=== PATIENT | male | born 1955 | race Caucasian/White ===

== ENCOUNTER 2025-03-21 12:25 | Outpatient (CLI) | payer MEDICARE, SELFPAY ==
--- OUTSIDE RECORDS SUMMARY | 2025-03-21 12:28 | XMS_ITS | Encounter Summary ---
Author Organization [facility] Address [address] [place] [address] Care Team Providers Care Senior Sales Executive Name Role Phone Unavailable Primary Care Provider Unavailabl e Encounter Details Date Type Department Care Team (Late st Contact Info) Description 10/09/2021 Lab Requisition [facility] [address] [facility], [place] [phone] Hilaria Lua MD [address] [facility] [address] [place] [address] Social History Tobacco Use Types Packs/Day Years Used Date Smoking Tobacco: Every Day Cigarettes Smokeless Tobacco: Former Alcohol Use Standard Drinks/Week Comments Never 0 (1 standard drink = 0.6 oz pur e alcohol) AUDIT-C Answer Date Recorded Q1: How often do you have a drink containing alc ohol? Never 10/09/2021 Average Number of Drinks Not on file 022 Frequency of Binge Drinking Not on file 08/2021 Hunger Vital Sign Answer Date Recorded Within the past 12 months, y ou worried that your food would run out before you got the money to buy more. Never true 10/12/19 22 Within the past 12 months, t he food you bought just didn't last and you didn't have money to get more. Never true 10/11/2021 Sex and Gender Information Value Date Recorded Sex Assigned at Not on file Legal Sex Male 5:48 AM CREDIT RISK OFFICER Gender Identity Not on file Sexual Orientation Not on file documented as of this encounter Functional Status documented as of this encounter Plan of Treatment Not on file documented as of this encounter Procedures Procedure Name Priority Date/Time Associated Diagnosis Comments IMMUNOFLUORESCENT STUDY DERM Routine 10/09/2021 12:00 AM CREDIT RISK OFFICER documented in this encounter Results * IMMUNOFLUORESCENT STUDY DERM (10/09/2021 12:00 AM CREDIT RISK OFFICER) Case Report Dermatopathol ogy Report Case: [id number] Authorizing Provider: Hilaria Lua MD Collected: 10/09/2021 12:00 AM Ordering Location: [facility] DermPath Lab Received: 10/09/2021 04:27 PM Pathologist: Selene Vitale MD Specimen: Skin, back 2 10:45 AM [facility] DERMATOPATHOLOGY LABORATORY Final Diagnosis Specimen A. SKIN, back: NO IMMUNOPATHOLO GICAL ABNORMALITY (L98.9) (see fixed tissue results [id number]) 2 10:45 AM [facility] DERMATOPATHOLOGY LABORATORY at 1045 CREDIT RISK OFFICER Direct Immunofluorescence Report - Specimen A Specimen A IgA IgM IgG C3 CollV Fibrinogen Epidermis Negative Negative Negative Negative Negative Negative Basement Membrane Negative Negative Negative Negative 2+ Negative Vessels Negative Negative Negative Negative 2+ Negative Interstitium Negative Negative Negative Negative Negative Non specific 2 10:45 AM [facility] DERMATOPATHOLOGY LABORATORY Clinical History VZV/HSV VS 10/12/19 2 2 10:45 AM [facility] DERMATOPATHOLOGY LABORATORY Gross Description Specimen A: Received is one Aldair's media filled container labeled with the patient's name and designated back. The specimen consists of a punch biopsy measuring 4x4x6 mm. The specimen is submitted in whole for direct immunofluores cence testing. 2 10:45 AM [facility] DERMATOPATHOLOGY LABORATORY Microscopic Description Specimen A. SKIN, back: Controls were run in parallel. Staining is negative with IgA, IgM, IgG, and C3. Collagen IV stains the basement membrane zone and vessels. Fibrinogen shows non-specific staining. A hematoxylin and eosin stained frozen section shows no significant inflammation. See fixed tissue results. 2 10:45 AM [facility] DERMATOPATHOLOGY LABORATORY Disclaimer An external and internal positive and negative controls are appropriate for the histochemical , immunohistoch emical and immunofluores cence stain(s) in this case (if any), except where stated explicitly. The performance characteristi cs of the stain(s) cited in this report were developed and its performance characteristi c determined by the Dermatopathol ogy Laboratory at [facility], directed by Dr. Isai Harris. These tests need not be, and therefore are not, approved by the [place] Food and Drug Administratio n. The tests are used for clinical purposes. Billing Codes Specimen Charges Stain Charges 92743 [id number] [id number] 1 1 1 1 1 1 2 10:45 AM CREDIT RISK OFFICER DERMATOPATHOLOGY LABORATORY Embedded Images 10:45 AM CREDIT RISK OFFICER DERMATOPATHOLOGY LABORATORY Pathology/Cytolog y TISSUE SPECIMEN FROM SKIN / Unknown 10/09/2021 10/09/2021 4:27 PM CREDIT RISK OFFICER Hilaria Lua MD LAB - PATHOLOGY/CYTOLOGY ORD ERABLES Final Result DERMATOPATHOLOGY LABORATORY [facility] - Department of Dermatology [facility] Medicine [address] [place] [address], [address] [phone] documented in this encounter Visit Diagnoses Not on filedocumented in this encounter Additional Health Concerns Infection Onset Date Last Indicated Resolved Time COVID-19 Under Investigation 10/10/2021 10/10/2021 10/10/2021 3:21 AM CREDIT RISK OFFICER documented as of this encounter
--- OUTSIDE RECORDS SUMMARY | 2025-03-21 12:28 | XMS_ITS | Clinical Summary ---
Author Organization [facility] Address [address] [place] [address] Care Team Providers Care Ships Equipment Engineer Name Role Phone Unavailable Primary Care Provider Unavailabl e Source Comments [facility],non-owned Affiliates and Associated Physician Practices is amultiple site organization consisting of ambulatory clinics and hospital sitesin [place], [place], [place] and [place]. This disclosure is being madepursuant to the Care Everywhere program and may not contain all information available regarding this patient. Last updated 18.[facility] Allergies No known active allergies Medications * Be aware that medications may not be up to date on this document. Alwaysverify current medications with the patient. acetaminophen (TYLENOL) 500 MG tablet Take 2 (two) tablets by mouth every 8 hours as needed (pain) Maximum allowable Acetaminophen amount = 4 Grams (4000 mg) / 24 hours. 30 tablet 2 Active gabapentin (NEURONTIN) 300 MG capsuleIndicat ions:Neuropath ic Pain Take 1 (one) capsule by mouth 3 times daily Reasons: Neuropathic Pain 180 capsule 2 Active Active Problems Problem Noted Date Diagnosed Date Disseminated herpes zoster 10/15/2021 MARIA DOLORES (acute kidney injury) 10/15/2021 Resolved Problems Problem Noted Date Diagnosed Date Resolved Date Dehydration 10/15/2021 10/29/2021 Disseminated herpes simplex 10/09/2021 10/16/2021 Social History Tobacco Use Types Packs/Day Years [...] Frequency of Binge Drinking Not on file 03/0 08/2021 Hunger Vital Sign Answer Date Recorded [...] on file Legal Sex Male 5:48 AM CLINICAL SYSTEMS ANALYST Gender Identity Not on file Sexual Orientation Not on file Last Filed Vital Signs Vital Sign Reading Time Taken Comments Blood Pressure 141/73 10/13/2021 9:58 AM CLINICAL SYSTEMS ANALYST Pulse 78 10/13/2021 9:58 AM CLINICAL SYSTEMS ANALYST Temperature 36.6 C (97.9 F) 10/13/2021 3:59 AM CLINICAL SYSTEMS ANALYST Respiratory Rate 18 10/13/2021 9:58 AM CLINICAL SYSTEMS ANALYST Oxygen Saturation 100% 10/13/2021 9:58 AM CLINICAL SYSTEMS ANALYST Inhaled Oxygen Concentration - - Weight 81.6 kg (180 lb) 10/09/2021 2:18 PM CLINICAL SYSTEMS ANALYST Height 170.2 cm (5' 7) 10/09/2021 2:18 PM CLINICAL SYSTEMS ANALYST Body Mass Index 28.19 10/09/2021 2:18 PM CLINICAL SYSTEMS ANALYST Plan of Treatment Health Maintenance Due Date Last Done Comments COLOGUARD (AGES 45-75) - COL ON CA SCREENING 1954 COLON MONITORING 1954 COLONOSCOPY - COLON CA SCREENING 1954 CT COLONOGRAPHY - COLON CA SCREENING 1954 Colorectal Cancer Screening 1954 FIT - COLON CA SCREENING 1954 FLEX SIG - COLON CA SCREENING 1954 LIPID TESTING 1954 HEPATITIS C SCREENING 04/07/1972 DTAP/TDAP/TD VACCINES (1 - Tdap) 1973 PNEUMOCOCCAL VACCINE 50+ (1 of 1 - PCV) 2004 ZOSTER VACCINE (1 of 2) 2004 AAA SCREENING 2019 COVID-19 VACCINE (4 - 2023-2 5 season) 2024 06/30/2021, 12/28/2020, 12/07/2020 DEPRESSION SCREENING 08/11/2024 INFLUENZA VACCINE (#1) 2025 , 06/04/2020 Respiratory Syncytial Virus (RSV) Vaccine Pt: or over 60 yrs (1 - 1-dose 75+ series) 2029 HEPATITIS B VACCINE Aged Out No longe r eligible based on patient's age to complete this topic HIB VACCINE Aged Out No longer eligi ble based on patient's age to complete this topic HPV VACCINE Aged Out No longer eligi ble based on patient's age to complete this topic MENINGOCOCCAL (Group B) VACCINE SHARED DECISION-MAKING Aged Out No longer eligible based on patient's age to complete this topic MENINGOCOCCAL GROUPS A/C/Y/W VACCINE Aged Out No longer eligible b ased on patient's age to complete this topic Insurance MEDICARE [employer] MANAGED MEDICARE ADV MEDICARE [facility] MANAGED MEDICARE ADV Member Subscriber Plan / Payer (Ef fective for All Dates) Name:Joseph Friedman Relation to Subscriber:Self Name:JOSEPH FRIEDMAN Payer ID:[id number] (NAIC) Type:Medicare-Managed Care Address: [address] MANAGED MEDICARE ADV Member Subscriber Plan / Payer (Ef fective for All Dates) Name:Joseph Friedman Relation to Subscriber:Self Name:JOSEPH FRIEDMAN Payer ID:[id number] (NAIC) Type:Medicare-Managed Care Address: [address] MANAGED MEDICARE ADV Member Subscriber Plan / Payer (Ef fective 2021-Present) Name:Joseph Friedman Relation to Subscriber:Self Name:JOSEPH FRIEDMAN Payer ID:[id number] (NAIC) Type:Medicare-Managed Care Address: [address] MANAGED MEDICARE ADV [facility] MANAGED MEDICARE ADV [facility] MANAGED MEDICARE ADV [place] [id number] Advance Directives * Full Code (Latest Code Status on File) Date Activated Date Inactivated Comments 10/09/2021 5:27 PM 10/13/2021 12:00 PM
--- NOTE | 2025-03-21 14:00 | NEURO_ITS ---
Impression: # Diabetic complains of hand numbness ? # No Carpal Tunnel Syndrome or Ulnar Neuropathy ? # Normal Needle/EMG exam ? # Clinical correlation recommended Nerve Conduction Studies ?Stim Site NR Peak (ms) P-T Amp (?V) Site1 Site2 Delta-P (ms) Dist (cm) Dario (m/s) Left Median Anti Sensory (2-3nd Digit) Wrist ? 3.2 21.0 Wrist 2-3nd Digit 3.2 14.0 44 Wrist ? 3.1 64.4 Wrist 2-3nd Digit 3.2 14.0 44 Left Radial Anti Sensory (Base 1st Digit) Wrist ? 1.9 18.2 Wrist Base 1st Digit 1.9 0.0 Left Ulnar Anti Sensory (5th Digit) Wrist ? 2.9 23.7 Wrist 5th Digit 2.9 14.0 48 ?Stim Site NR Onset (ms) O-P Amp (mV) Site1 Site2 Delta-0 (ms) Dist (cm) Dario (m/s) Left Median Motor (Abd Poll Brev) Wrist ? 3.7 2.4 Elbow Wrist 5.2 30.0 58 Elbow ? 8.9 3.6 Left Ulnar Motor (Abd Dig Minimi) Wrist ? 2.7 5.6 A Elbow Wrist 5.7 31.0 54 A Elbow ? 8.4 4.3 B Elbow Wrist 4.6 24.0 52 B Elbow ? 7.3 3.3 Electromyography ?Side Muscle Nerve Root Ins Act Fibs Amp Dur Recrt Comment Left 1stDorInt Ulnar C8-T1 Nml Nml Nml Nml Nml Left Ext Indicis Radial (Post Int) C7-8 Nml Nml Nml Nml Nml Left Ext Digitorum Radial (Post Int) C7-8 Nml Nml Nml Nml Nml Left BrachioRad Radial C5-6 Nml Nml Nml Nml Nml Left PronatorTeres Median C6-7 Nml Nml Nml Nml Nml Left Abd Poll Brev Median C8-T1 Nml Nml Nml Nml Nml Left ABD Dig Min Ulnar C8-T1 Nml Nml Nml Nml Nml Left FlexPolLong Median (Ant Int) C7-8 Nml Nml Nml Nml Nml Left Abd Poll Long Radial (Post Int) C7-8 Nml Nml Nml Nml Nml
== END 2025-03-21 12:26 | disposition home or self-care (01) ==
PROVIDERS: PCP Internal Medicine; Visit Provider Nurse Practitioner
DX: R20.2 Paresthesia of skin (principal)
CPT/HCPCS: 95886; 95909

== ENCOUNTER 2025-05-03 16:00 | Emergency (ER) | payer MEDICARE, SELFPAY ==
--- NOTE | ~2025-05-03 | XR_ITS ---
XR knee LT 3V 05/03/2025 16:35 Indication: Left knee pain after fall Procedure: 3 views left knee Comparison: No prior studies for comparison. Findings: No fracture, subluxation or dislocation. No joint effusion. No foreign bodies. Impression: 1: No acute bone or joint abnormality Reviewed, dictated and finalized at location O. Impression: 1: No acute bone or joint abnormality
--- NOTE | ~2025-05-03 | CT_ITS ---
EXAMINATION: CT brain wo con DATE: 05/03/2025 16:19 INDICATION: Fall TECHNIQUE: Computed tomography (CT) of the head was performed without intravenous contrast. Sagittal and coronal reconstructions were performed. The mA was adjusted according to patient size. Iterative reconstruction technique was employed. The dose-length product was 605.33 mGy-cm. COMPARISON: None FINDINGS: No fracture. There are several small regions of encephalomalacia consistent with chronic cortical infarcts in the right frontal and parietal lobes. There are also a few small old lacunar infarcts in the right frontal lobe periventricular white matter. No acute intracranial hemorrhage, acute infarction or abnormal extra axial fluid collection. There is mild scattered white matter hypoattenuation consistent with chronic small vessel ischemic disease. Ventricles are normal and symmetric. No mass/mass effect. Changes of bilateral intraocular lens replacement. The orbits, paranasal sinuses and mastoid air cells are normal. IMPRESSION: 1. No fracture or acute intracranial process. 2. Multiple small infarcts in the right frontal and parietal lobes along with mild scattered white matter hypoattenuation consistent with chronic small vessel ischemic disease.. Reviewed, dictated and finalized at location A. IMPRESSION: 1. No fracture or acute intracranial process. 2. Multiple small infarcts in the right frontal and parietal lobes along with m ild scattered white matter hypoattenuation consistent with chronic small vessel ischemic disease..
--- NOTE | ~2025-05-03 | XR_ITS ---
XR shoulder LT min 2V 05/03/2025 16:35 INDICATION: Left shoulder pain after fall PROCEDURE: 4 views left shoulder COMPARISON: No prior studies for comparison. FINDINGS: Fracture, dislocation or subluxation is not identified. There is mild polyarticular osteoarthritis. The soft tissues appear within normal limits. No foreign bodies are identified. IMPRESSION: 1: NO ACUTE BONE OR JOINT ABNORMALITY IDENTIFIED. Reviewed, dictated and finalized at location O.
--- NOTE | ~2025-05-03 | CT_ITS ---
EXAMINATION: CT cervical spine wo con DATE: 05/03/2025 16:20 INDICATION: Neck pain after fall TECHNIQUE: Computed tomography (CT) of the cervical spine was performed without intravenous contrast. The dose-length product was 458 mGy-cm. Automated exposure control and iterative reconstruction technique were employed. COMPARISON: None FINDINGS: Normal cervical alignment. Vertebral body heights are maintained. No fracture, subluxation or dislocation. Craniovertebral junction is normal. Odontoid process within normal limits. No evidence for perched facet. Spinous processes are normal. No significant paraspinal soft tissue abnormality. There is carotid atherosclerosis. There is a 9 mm hypodense mass of the left thyroid lobe, likely benign. Lung apices are normal. There is mild multilevel uncinate and facet hypertrophy. IMPRESSION: 1. No acute abnormality of the cervical spine. Reviewed, dictated and finalized at location O.
--- NOTE | ~2025-05-03 | XR_ITS ---
XR hip LT 2V w AP pelvis 05/03/2025 16:35 INDICATION: Left hip pain after fall PROCEDURE: AP pelvis and 2 views left hip COMPARISON: No prior studies for comparison. FINDINGS: Fracture, dislocation or subluxation is not identified. Pelvic rings intact. The soft tissues appear within normal limits. No foreign bodies are identified. IMPRESSION: 1: NO ACUTE BONE OR JOINT ABNORMALITY IDENTIFIED. Reviewed, dictated and finalized at location O.
[2025-05-03 16:01] VITALS: BP 147/90; PULSE 94; RESP 15; TEMP 36.3; O2SAT 100
--- OUTSIDE RECORDS SUMMARY | 2025-05-03 16:02 | XMS_ITS | Encounter Summary ---
Author Organization [facility] Address [address] [facility] [place] [address] Care Team Providers Care Electric Motor Mechanic Name Role Phone Unavailable Primary Care Provider Unavailabl e Encounter Details Date Type Department Care Team (Late st Contact Info) Description 10/09/2021 Lab Requisition [facility] [address] [facility], [place] [phone] Hilaria Lua MD [address] [facility] [address] [place] [address] Social History Tobacco Use Types Packs/Day Years [...] on file Legal Sex Male 5:48 AM DIRECTOR OF OCCUPATIONAL HEALTH Gender Identity Not on file Sexual Orientation Not on file documented as of this encounter Functional Status documented as of this encounter Plan of Treatment Not on file documented as of this encounter Procedures Procedure Name Priority Date/Time Associated Diagnosis Comments IMMUNOFLUORESCENT STUDY DERM Routine 10/09/2021 12:00 AM DIRECTOR OF OCCUPATIONAL HEALTH documented in this encounter Results * IMMUNOFLUORESCENT STUDY DERM (10/09/2021 12:00 AM DIRECTOR OF OCCUPATIONAL HEALTH) Case Report Dermatopathol ogy Report Case: [id number] Authorizing Provider: Hilaria Lua MD Collected: 10/09/2021 12:00 AM Ordering Location: [facility] Lab Received: 10/09/2021 04:27 PM Pathologist: Selene Vitale MD Specimen: Skin, back 2 10:45 AM [facility] DERMATOPATHOLOGY LABORATORY Final Diagnosis Specimen A. SKIN, back: NO IMMUNOPATHOLO GICAL ABNORMALITY (L98.9) (see fixed tissue results [id number]) 2 10:45 AM [facility] DERMATOPATHOLOGY LABORATORY at 1045 DIRECTOR OF OCCUPATIONAL HEALTH Direct Immunofluorescence Report - Specimen A Specimen A IgA IgM IgG C3 CollV Fibrinogen Epidermis Negative Negative Negative Negative Negative Negative Basement Membrane Negative Negative Negative Negative 2+ Negative Vessels Negative Negative Negative Negative 2+ Negative Interstitium Negative Negative Negative Negative Negative Non specific 2 10:45 AM [facility] DERMATOPATHOLOGY LABORATORY Clinical History VZV/HSV VS 10/12/19 2 2 10:45 AM [facility] DERMATOPATHOLOGY LABORATORY Gross Description Specimen A: Received is one Aldair's media filled container labeled with the patient's name and designated back. The specimen consists of a punch biopsy measuring 4x4x6 mm. The specimen is submitted in whole for direct immunofluores cence testing. 2 10:45 AM [facility] DERMATOPATHOLOGY LABORATORY Microscopic Description Specimen A. SKIN, back: Controls were run in parallel. Staining is negative with IgA, IgM, IgG, and C3. Collagen IV stains the basement membrane zone and vessels. Fibrinogen shows non-specific staining. A hematoxylin and eosin stained frozen section shows no significant inflammation. See fixed tissue results. 2 10:45 AM [facility] DERMATOPATHOLOGY LABORATORY Disclaimer An external and internal positive and negative controls are appropriate for the histochemical , immunohistoch emical and immunofluores cence stain(s) in this case (if any), except where stated explicitly. The performance characteristi cs of the stain(s) cited in this report were developed and its performance characteristi c determined by the Dermatopathol ogy Laboratory at [facility], directed by Dr. Isai Harris. These tests need not be, and therefore are not, approved by the [place] Food and Drug Administratio n. The tests are used for clinical purposes. Billing Codes Specimen Charges Stain Charges 80346 [id number] 1 1 1 1 1 1 2 10:45 AM DIRECTOR OF OCCUPATIONAL HEALTH DERMATOPATHOLOGY LABORATORY Embedded Images 10:45 AM DIRECTOR OF OCCUPATIONAL HEALTH DERMATOPATHOLOGY LABORATORY Pathology/Cytolog y TISSUE SPECIMEN FROM SKIN / Unknown 10/09/2021 10/09/2021 4:27 PM DIRECTOR OF OCCUPATIONAL HEALTH Hilaria Lua MD LAB - PATHOLOGY/CYTOLOGY ORD ERABLES Final Result DERMATOPATHOLOGY LABORATORY [facility] - Department of Dermatology [facility] Medicine [address] [place] [address], [address] Floor [address] [phone] documented in this encounter Visit Diagnoses Not on filedocumented in this encounter Additional Health Concerns Infection Onset Date Last Indicated Resolved Time COVID-19 Under Investigation 10/10/2021 10/10/2021 10/10/2021 3:21 AM DIRECTOR OF OCCUPATIONAL HEALTH documented as of this encounter
--- OUTSIDE RECORDS SUMMARY | 2025-05-03 16:02 | XMS_ITS | Clinical Summary ---
Author Organization [facility] Address [address] [place] [address] Care Team Providers Care Nuclear Reactor Technician Name Role Phone Unavailable Primary Care Provider Unavailabl e Source Comments [facility],non-owned Affiliates and Associated Physician Practices is amultiple site organization consisting of ambulatory clinics and hospital sitesin [place], [place] and [place]. This disclosure is being madepursuant to the Care Everywhere program and may not contain all information available regarding this patient. Last updated 18.[facility] [employer] Allergies No known active allergies Medications * [...] on file Legal Sex Male 5:48 AM PLANT CONTROL AIDE Gender Identity Not on file Sexual Orientation Not on file Last Filed Vital Signs Vital Sign Reading Time Taken Comments Blood Pressure 141/73 10/13/2021 9:58 AM PLANT CONTROL AIDE Pulse 78 10/13/2021 9:58 AM PLANT CONTROL AIDE Temperature 36.6 C (97.9 F) 10/13/2021 3:59 AM PLANT CONTROL AIDE Respiratory Rate 18 10/13/2021 9:58 AM PLANT CONTROL AIDE Oxygen Saturation 100% 10/13/2021 9:58 AM PLANT CONTROL AIDE Inhaled Oxygen Concentration - - Weight 81.6 kg (180 lb) 10/09/2021 2:18 PM PLANT CONTROL AIDE Height 170.2 cm (5' 7) 10/09/2021 2:18 PM PLANT CONTROL AIDE Body Mass Index 28.19 10/09/2021 2:18 PM PLANT CONTROL AIDE Plan of Treatment Health Maintenance Due Date [...] (1 of 2) 2004 AAA SCREENING 2019 DEPRESSION SCREENING 08/11/2024 COVID-19 VACCINE (4 - 2024-2 6 season) 2025 06/30/2021, 12/28/2020, 12/07/2020 INFLUENZA VACCINE (#1) 2025 , 06/04/2020 Respiratory [...] Insurance MEDICARE [employer]HC MANAGED MEDICARE ADV MEDICARE [facility] MANAGED MEDICARE ADV Member Subscriber Plan / Payer (Ef fective for All Dates) Name:Joseph Friedman Relation to Subscriber:Self Name:JOSEPH FRIEDMAN Payer ID:[id number] (NAIC) Type:Medicare-Managed Care Address: [address] MANAGED MEDICARE ADV Member Subscriber Plan / Payer (Ef fective for All Dates) Name:Joseph Friedman Relation to Subscriber:Self Name:JOSEPH FRIEDMAN Payer ID:[id number] (NAIC) Type:Medicare-Managed Care Address: [address] MANAGED MEDICARE ADV Member Subscriber Plan / Payer (Ef fective 2021-Present) Name:Joseph Friedman Relation to Subscriber:Self Name:JOSEPH FRIEDMAN Payer ID:[id number] (NAIC) Type:Medicare-Managed Care Address: [address] MANAGED MEDICARE ADV [facility] MANAGED MEDICARE ADV [facility] MANAGED MEDICARE ADV [place] [id number] Advance Directives * Full Code (Latest Code Status on File) Date Activated Date Inactivated Comments 10/09/2021 5:27 PM 10/13/2021 12:00 PM
--- OUTSIDE RECORDS SUMMARY | 2025-05-03 16:02 | XMS_ITS | Clinical Summary ---
Author Organization [facility] Address [address] [place] [address] Phone Care Team Providers Care Preprint Analyst Name Role Phone Osvaldo Quiroga MD Primary Care Provider [phone] Social History Tobacco Use Types Packs/Day Years Used Date Smoking Tobacco: Never Assessed Sex and Gender Information Value Date Recorded Sex Assigned at Not on file Legal Sex Male 1:42 PM CDT Gender Identity Not on file Sexual Orientation Not on file Plan of Treatment Upcoming Encounters Date Type Department Care Team (Late st Contact Info) Description 08/26/2025 11:00 AM METAL AND PLASTIC HEATER Office Visit [facility] Emergency Department [address] [place] [address] Randy Dowd MD [address] [place] [address] Health Maintenance Due Date Last Done Comments Hepatitis C Virus (HCV) Screening 1955 TdaP Immunization 1954 Cologuard 1999 Colonoscopy 1999 Colorectal Cancer Screening 1999 Immunochemical Fecal Occult Blood 1999 Zoster Immunization (1 of 2) 2004 Pneumococcal Immunization (50+ years) (2 of 2 - PCV20 or PCV21) 06/04/2021 06/04/2020 SARS-COV-2 Immunization ( season) 2024 03/03/2022, 06/30/2021, 12/28/2020, Additional history exists Influenza Immunization (#1) 2025 05/13/2021, 1 Respiratory Syncytial Virus (RSV) Immunization (Adult) (1 - 1-dose 75+ series) 2029 Pneumococcal Immunization Combined Discontinued 06/04/2020 PSA Discussion Discontinued 06/20/2020 Hepatitis B Immunization Aged Out No longer eligible based on patient's age to complete this topic Human Papillomavirus (HPV) Immunization Aged Out No longer eligible based on patient's age to complete this topic Meningococcal Immunization (ACWY) Aged Out No longer eligible based on patient's age to complete this topic Rotavirus Immunization Aged Out No lo nger eligible based on patient's age to complete this topic Procedures Procedure Name Priority Date/Time Associated Diagnosis Comments PSA DIAGNOSTIC,TOTAL Routine 06/20/2020 11:30 AM METAL AND PLASTIC HEATER Hypertension, unspecified type Diabetes mellitus of other type without complication, unspecified whether fdc insulin use (HCC) Benign prostatic hyperplasia, unspecified whether lower urinary tract symptoms present from Last 3 Months or Most Recently Relevant to Health Maintenance Results * PSA DIAGNOSTIC,TOTAL (06/20/2020 11:30 AM METAL AND PLASTIC HEATER) PSA, TOTAL (PROSTATIC SPECIFIC ANTIGEN) 0.74 <=4.00 ng/mL 06/20/2020 2:07 PM METAL AND PLASTIC HEATER [facility] Blood Venipuncture / Unknown 06/20/2020 11:30 AM METAL AND PLASTIC HEATER 06/20/2020 1:11 PM METAL AND PLASTIC HEATER Narrative [facility] - 06/20/2020 2:07 PM METAL AND PLASTIC HEATER PSA NOTE: The PSA value should be used in conjunction with information available from clinical evaluation and other diagnostic procedures. us Osvaldo Quiroga MD CHEMISTRY ORDERABLES Final Res ult [facility] [address] [place] [address] from Last 3 Months or Most Recently Relevant to Health Maintenance Insurance MEDICARE MEDICARE C [employer] Care Teams Preprint Analyst Relationship Specialty Start Date End Date Osvaldo Quiroga MD [address] [place] [address] [place] [address] PCP - General Family Medicine 05/07/19
--- NOTE | 2025-05-03 16:08 | ED.GENADULT ---
HPI - General Adult General Chief complaint: Fall <Anuradha Laws December, - Last Filed: 05/03/25 19:13> Stated complaint: fall <Anuradha Laws December, - Last Filed: 05/03/25 19:13> Time Seen by Provider: 05/03/25 16:08 <Anuradha Laws December, - Last Filed: 05/03/25 19:13> Focused HPI: Rupert Friedman is a 70 y/o male who presents after mechanical ground level fall in the rain in the parking lot. Complains of pain to left shoulder, ROM splinted due to pain, and left knee pain, no LOC GENERAL: , well-nourished, HEAD: Normocephalic, atraumatic. CHEST: Clear to auscultation. ?No respiratory distress. HEART: Regular rate and rhythm.? NEURO: ?Alert and oriented x3. Patient screened in triage and initial orders placed.? ?Additional care and disposition to be based upon?diagnostic testing and treatment. <Anuradha Laws December, - Last Filed: 05/03/25 19:13> Focused HPI: Rupert Friedman is a 70 y/o male who presents after mechanical ground level fall in the rain in the parking lot. Complains of pain to left shoulder, ROM limited due to pain, and left knee pain, no LOC or head injury. GENERAL: Well appearing, well-nourished, HEAD: Normocephalic, atraumatic. CHEST: Clear to auscultation. ?No respiratory distress. HEART: Regular rate and rhythm.? NEURO: ?Alert and oriented x3. Patient screened in triage and initial orders placed.? ?Additional care and disposition to be based upon?diagnostic testing and treatment. <Carola Mccarthy PA-C - Last Filed: 05/03/25 17:50> Related Data Home medications: Home Medications ?Medication ?Instructions ?Recorded ?Confirmed ?Last Taken ?Type multivitamin 1 tablet PO DAILY 12/31/24 01/03/25 Unknown History <Anuradha Laws December, - Last Filed: 05/03/25 19:13> Allergies/adverse reactions: Allergies Allergy/AdvReac Type Severity Reaction Status Date / Time No Known Allergies Allergy Verified 05/03/25 16:05 <Anuradha Samaniego - Last Filed: 05/03/25 19:13> Review of Systems Review of Systems: All systems reviewed & are unremarkable except as noted in HPI and below <Carola Mccarthy PA-C - Last Filed: 05/03/25 17:50> PMFSH Past Medical History Medical History: Medical History (Updated 05/03/25 @ 17:47 by Carola Mccarthy PA-C) Hyperlipidemia Type 2 diabetes mellitus Essential hypertension Shingles outbreak <Anuradha Samaniego - Last Filed: 05/03/25 19:13> Surgical History Surgical History: Surgical History (Updated 12/31/24 @ 12:32 by Ambika Sousa [facility]) History of hernia surgery <Anuradha Laws December, - Last Filed: 05/03/25 19:13> Family History Family History: Family History (Updated 12/31/24 @ 12:34 by Ambika Sousa [facility]) Sibling Diabetes mellitus Sibling , 2 brothers passed from lung cancer Lung cancer Father Heart attack <Anuradha Laws December - Last Filed: 05/03/25 19:13> Social History Social History: Social History (Updated 12/31/24 @ 13:46 by Preston Strong APRN) Smoking packs per day: 1 Smoking cigarettes per day: 20.0 Years smoked: 40 Smoking pack-years: 40.00 Smoking status: Former smoker Tobacco type: cigarettes Alcohol intake: former Substance use: never Living arrangements: other Occupation/Education: retired Additional occupation/education comments: P[employer] Gender identity (if verbalized by the patient): Male Sexual Orientation (if Verbalized by the Patient): Straight or Heterosexual <Anuradha Laws December, - Last Filed: 05/03/25 19:13> Exam Narrative: GENERAL: Well-appearing, well-nourished, and in no acute distress. HEAD: Normocephalic, atraumatic. EYES: PERRLA and EOMI. ENT: Nares clear, no rhinorrhea or epistaxis. Mucous membranes moist. Oropharynx without tonsillar hypertrophy exudate or other lesions. Bilateral TMs pearly rodriguez non-bulging NECK: Supple. No adenopathy or masses. CHEST: Clear to auscultation. No respiratory distress. No wheezes rales or rhonchi HEART: Regular rate and rhythm. No murmur heard. Normal peripheral pulses. EXTREMITIES: Normal range of motion. No edema or obvious deformity. SKIN: Warm, dry, no rash. Scattered abrasions to the left hand, elbow, knee NEURO: No focal deficits. Alert and oriented x3. Cranial nerves 2-12 grossly intact PSYCH: Normal mood and affect <Carola Mccarthy PA-C - Last Filed: 05/03/25 17:50> Course Vital Signs Vital signs: Vital Signs Temperature 36.3 C L 05/03/25 16:01 Pulse Rate 94 05/03/25 16:01 Respiratory Rate 15 05/03/25 16:01 Blood Pressure 147/90 H 05/03/25 16:01 Pulse Oximetry 100 05/03/25 16:01 Oxygen Delivery Room Air 05/03/25 16:01 Temperature 36.3 C L 05/03/25 16:01 Pulse Rate 94 05/03/25 16:01 Respiratory Rate 15 05/03/25 16:01 Blood Pressure 147/90 H 05/03/25 16:01 Pulse Oximetry 100 05/03/25 16:01 Oxygen Delivery Room Air 05/03/25 16:01 <Anuradha Samaniego, MANAGER LICENSING - Last Filed: 05/03/25 19:13> Vital Signs Temperature 36.3 C L 05/03/25 16:01 Pulse Rate 94 05/03/25 16:01 Respiratory Rate 15 05/03/25 16:01 Blood Pressure 147/90 H 05/03/25 16:01 Pulse Oximetry 100 05/03/25 16:01 Oxygen Delivery Room Air 05/03/25 16:01 Temperature 36.3 C L 05/03/25 16:01 Pulse Rate 94 05/03/25 16:01 Respiratory Rate 15 05/03/25 16:01 Blood Pressure 147/90 H 05/03/25 16:01 Pulse Oximetry 100 05/03/25 16:01 Oxygen Delivery Room Air 05/03/25 16:01 <Carola Mccarthy PA-C - Last Filed: 05/03/25 17:50> Medical Decision Making MDM Narrative Medical decision making narrative: Patient presents to the emergency department after a ground level fall today with left shoulder and knee pain. Patient is neurologically intact. CT brain, cervical spine without acute findings. Left knee, shoulder, hip/pelvic x-rays without acute osseous abnormalities. Patient updated on his workup and agrees with plan of care. He is to follow up with primary provider. He was given warnings to return to the ER <Carola Mccarthy PA-C - Last Filed: 05/03/25 17:50> Differential Diagnosis Differential Diagnosis: contusion, humerus fracture, shoulder sprain, patella fracture <Carola Mccarthy PA-C - Last Filed: 05/03/25 17:50> Vital Signs Vital Signs: Vital Signs Temperature 36.3 C L 05/03/25 16:01 Pulse Rate 94 05/03/25 16:01 Respiratory Rate 15 05/03/25 16:01 Blood Pressure 147/90 H 05/03/25 16:01 Pulse Oximetry 100 05/03/25 16:01 Oxygen Delivery Room Air 05/03/25 16:01 Temperature 36.3 C L 05/03/25 16:01 Pulse Rate 94 05/03/25 16:01 Respiratory Rate 15 05/03/25 16:01 Blood Pressure 147/90 H 05/03/25 16:01 Pulse Oximetry 100 05/03/25 16:01 Oxygen Delivery Room Air 05/03/25 16:01 <Anuradha Samaniego, MANAGER [employer]ICENSING - Last Filed: 05/03/25 19:13> Vital Signs Temperature 36.3 C L 05/03/25 16:01 Pulse Rate 94 05/03/25 16:01 Respiratory Rate 15 05/03/25 16:01 Blood Pressure 147/90 H 05/03/25 16:01 Pulse Oximetry 100 05/03/25 16:01 Oxygen Delivery Room Air 05/03/25 16:01 Temperature 36.3 C L 05/03/25 16:01 Pulse Rate 94 05/03/25 16:01 Respiratory Rate 15 05/03/25 16:01 Blood Pressure 147/90 H 05/03/25 16:01 Pulse Oximetry 100 05/03/25 16:01 Oxygen Delivery Room Air 05/03/25 16:01 <DIMITRIOS Ribera Last Filed: 05/03/25 17:50> Imaging Data Radiologist's impression: ITS Impressions Head CT 05/03/25 16:21 IMPRESSION: 1. No fracture or acute intracranial process. 2. Multiple small infarcts in the right frontal and parietal lobes along with mild scattered white matter hypoattenuation consistent with chronic small vessel ischemic disease.. Cervical Spine CT 05/03/25 16:28 IMPRESSION: 1. No acute abnormality of the cervical spine. Knee X-Ray 05/03/25 16:39 Impression: 1: No acute bone or joint abnormality Hip/Pelvis X-Ray 05/03/25 16:41 IMPRESSION: 1: NO ACUTE BONE OR JOINT ABNORMALITY IDENTIFIED. Shoulder X-Ray 05/03/25 16:42 IMPRESSION: 1: NO ACUTE BONE OR JOINT ABNORMALITY IDENTIFIED. <Carola Mccarthy PA-C - Last Filed: 05/03/25 17:50> Critical Care Time Critical Care Time Critical Care Time: No <Carola Mccarthy PA-C - Last Filed: 05/03/25 17:50> Discharge Plan Discharge Clinical Impression: Fall from ground level, Abrasion Sprain of left shoulder Qualifiers: Encounter type: initial encounter Shoulder sprain type: unspecified sprain Qualified Code(s): S43.402A - Unspecified sprain of left shoulder joint, initial encounter <Anuradha Samaniego, - Last Filed: 05/03/25 19:13> Patient Disposition: Home <Anuradha Laws December, - Last Filed: 05/03/25 19:13> Condition: Stable <Anuradha Laws December, - Last Filed: 05/03/25 19:13> Instructions: Shoulder Sprain (ED), Abrasion (ED) <Anuradha Laws December, - Last Filed: 05/03/25 19:13> Additional Instructions: Return to the emergency department if you experience fever, chest pain, shortness of breath, abdominal pain with nausea and vomiting, weakness, numbness, or any other symptoms that are concerning to you. Rest. Ice to the area. Tylenol or ibuprofen as needed for pain Follow up with your primary care doctor <Anuradha Samaniego MANAGER [employer]ING - Last Filed: 05/03/25 19:13> Patient Language: Urdu <Anuradha Laws December, Last Filed: 05/03/25 19:13> Prescriptions: No Action multivitamin Tablet 1 tablet PO DAILY lisinopril 20 mg tablet 20 mg PO DAILY Qty: 90 1RF metformin 500 mg tablet 500 mg PO BID Qty: 180 1RF pioglitazone 15 mg tablet 15 mg PO DAILY Qty: 90 1RF rosuvastatin 20 mg tablet 20 mg PO DAILY Qty: 90 1RF (DME) lancets [OneTouch Delica Plus Lancet] 30 gauge misc See Rx Instructions .Route Qty: 100 3RF Rx Instructions: Test daily (DME) OneTouch Verio test strips Strip See Rx Instructions .Route Qty: 100 0RF Rx Instructions: Test daily <Anuradha Samaniego APRN - Last Filed: 05/03/25 19:13> Follow-up/Referrals: Derrick Vasques DO [Primary Care Provider, Internal Medicine] <Aunradha Samaniego APRN - Last Filed: 05/03/25 19:13>
[2025-05-03] MEDS: ACETAMINOPHEN 500 MG TABLET 1000 MG PO (17:59)
[2025-05-03] MEDS: TETANUS,DIPHTHERIA,AC PERTUSSIS ADULT (0.5 ML) BOOSTRIX IM (17:59)
== END 2025-05-03 18:29 | disposition home or self-care (01) ==
PROVIDERS: Emergency Provider Physician Assistant; PCP Internal Medicine
DX: S43.402A Unspecified sprain of left shoulder joint, initial encounter (principal); S60.512A Abrasion of left hand, initial encounter; S50.312A Abrasion of left elbow, initial encounter; S80.212A Abrasion, left knee, initial encounter; Z23 Encounter for immunization; I10 Essential (primary) hypertension; E78.5 Hyperlipidemia, unspecified; E11.9 Type 2 diabetes mellitus without complications; Z87.891 Personal history of nicotine dependence; Z79.899 Other long term (current) drug therapy; Z79.84 Long term (current) use of oral hypoglycemic drugs; W01.0XXA Fall on same level from slipping, tripping and stumbling without subsequent striking against object, initial encounter
CPT/HCPCS: 70450; 72125; 73030; 73502; 73562; 90471; 90715; 99284; A4565; A9270